=== PATIENT | female | born 1940 | race Caucasian/White ===

== ENCOUNTER 2017-02-09 09:41 | Observation (INO) | payer MEDICARE, BC ==
[~2017-02-09] VITALS: Ht 157.5 cm; Wt 55.8 kg
[~2017-02-09 09:41] MED LIST: ALENDRONATE70 MG PO; ARICEPT5 MG PO; ASPIRIN EC81 MG PO; ATENOLOL50 MG PO; CALCIUM600 M2 PO; DITROPAN PO; FOSAMAX70 MG OR; HALFPRIN81 MG OR; MULTI VIT PO; OMEGA-31000 MG PO; OMEPRAZOLE10 MG OR; PREVACID30 M1 PO; PRILOSEC20 MG PO; SIMVASTATIN40 MG PO; ZOFRAN ODT4 MG PO; ZOFRAN4 M1 OR
[2017-02-09 10:34] LABS: HEMATOCRIT 44.3 % (37.0-47.0); HEMOGLOBIN 15.3 g/dl (12.0-16.0); IMMATURE GRANULOCYTES 0.2 % (0.0-1.0); MEAN CELL VOLUME 89.3 fL CALC (80.0-100.0); MEAN CORPUSCULAR HGB 30.8 pG CALC (26.0-32.0); MEAN CORPUSCULAR HGB CONC 34.5 g/L CALC (32.0-36.0); NEUT# 3.45 thou/uL (2.00-7.15); RED BLOOD COUNT 4.96 mill/uL (4.20-5.60); RED CELL DISTRI WIDTH 11.9 % (11.5-15.5)
[2017-02-09 10:57] LABS: PROTHROMBIN TIME 10.3 SECONDS (9.0-12.5)
[2017-02-09 10:59] LABS: ALKALINE PHOSPHATASE 67 u/l (38-126); ANION GAP 16 (6-22 (CALC)); BILIRUBIN, TOTAL 0.8 mg/dL (0.0-1.4); BUN 20 mg/dL (8-23); BUN/CREATININE RATIO 23 (12-20 (CALC)); CALCIUM 10.9 mg/dL (8.4-10.2); CARBON DIOXIDE 31 mmol/l (22-30); CHLORIDE 98 mmol/l (95-108); CREATININE 0.8 mg/dL (0.5-1.0); GFR > 60 ML/MIN (>=60 (CALC)); GFR FOR AFR.AMER. > 60 ML/MIN (>=60 (CALC)); GLUCOSE 89 mg/dL (82-115); POTASSIUM 3.8 mmol/l (3.5-5.1); SGOT/AST 29 u/l (9-36); SGPT/ALT 28 u/l (11-66); SODIUM 141 mmol/l (137-146); TOTAL PROTEIN 8.1 g/dL (6.3-8.2)
[2017-02-09 11:10] LABS: MYOGLOBIN 29 ng/mL (0 - 62)
[2017-02-09 14:50] VITALS: BP 149/75
[2017-02-09 18:58] VITALS: BP 114/61
[2017-02-10] VITALS: BP 116/67
[2017-02-10 03:25] VITALS: BP 127/72
[2017-02-10 07:41] VITALS: BP 132/58
[2017-02-10 11:04] VITALS: BP 129/64
[2017-02-10] MEDS ORDERED: NAMZARIC 28-101 CAP PO (12:56)
[2017-02-10] MEDS ORDERED: ATENOLOL50 MG PO (12:58)
== END 2017-02-10 13:30 | disposition home or self-care (01) ==
LOC: ENPENDDIS → ED 09:41 → ED-I 10:41 → ED 13:42 → MS2 13:43
PROVIDERS: Emergency Medicine; ADMIT Internal Medicine; ATTEND Internal Medicine
DX: R41.82 Altered mental status, unspecified (principal); I10 Essential (primary) hypertension; R41.81 Age-related cognitive decline; K21.9 Gastro-esophageal reflux disease without esophagitis; M81.0 Age-related osteoporosis without current pathological fracture; R42 Dizziness and giddiness; R94.31 Abnormal electrocardiogram [ECG] [EKG]

== ENCOUNTER 2017-10-20 06:03 | Emergency (ER) | payer MEDICARE, BC ==
[~2017-10-20] VITALS: Ht 157.5 cm; Wt 60.0 kg
[~2017-10-20 06:03] MED LIST changes: +NAMZARIC 28-101 CAP PO
[2017-10-20 06:48] LABS: HEMATOCRIT 39.8 % (37.0-47.0); HEMOGLOBIN 13.9 g/dl (12.0-16.0); IMMATURE GRANULOCYTES 0.2 % (0.0-1.0); MEAN CELL VOLUME 88.6 fL CALC (80.0-100.0); MEAN CORPUSCULAR HGB CONC 34.9 g/L CALC (32.0-36.0); NEUT# 3.54 thou/uL (2.00-7.15); RED BLOOD COUNT 4.49 mill/uL (4.20-5.60); RED CELL DISTRI WIDTH 11.8 % (11.5-15.5)
[2017-10-20 07:03] LABS: ALBUMIN 4.7 g/dL (3.2-5.0); ALKALINE PHOSPHATASE 91 u/l (38-126); AMYLASE 71 u/l (30-110); ANION GAP 19 (6-22 (CALC)); BILIRUBIN, TOTAL 0.7 mg/dL (0.0-1.4); BUN 13 mg/dL (8-23); BUN/CREATININE RATIO 19 (12-20 (CALC)); CARBON DIOXIDE 26 mmol/l (22-30); CHLORIDE 98 mmol/l (95-108); CREATININE 0.7 mg/dL (0.5-1.0); GFR > 60 ML/MIN (>=60 (CALC)); GFR FOR AFR.AMER. > 60 ML/MIN (>=60 (CALC)); LIPASE 133 u/l (23-300); POTASSIUM 3.3 mmol/l (3.5-5.1); SGOT/AST 45 u/l (9-36); SGPT/ALT 28 u/l (11-66); SODIUM 140 mmol/l (137-146); TOTAL PROTEIN 7.2 g/dL (6.3-8.2)
[2017-10-20 07:15] LABS: MYOGLOBIN 24 ng/mL (0 - 62)
[2017-10-20] MEDS ORDERED: ZOFRAN4 MG/TAB PO (08:30)
[2017-10-20 08:39] VITALS: BP 144/61
== END 2017-10-20 08:45 | disposition home or self-care (01) ==
LOC: ED 06:03
PROVIDERS: Emergency Medicine
DX: R10.13 Epigastric pain (principal); R11.2 Nausea with vomiting, unspecified

== ENCOUNTER 2017-10-24 22:26 | Emergency (ER) | payer MEDICARE, BC ==
[~2017-10-24] VITALS: Ht 157.5 cm; Wt 52.6 kg
[~2017-10-24 22:26] MED LIST changes: +ZOFRAN4 MG/TAB PO
[2017-10-24 23:30] LABS: HEMATOCRIT 42.7 % (37.0-47.0); HEMOGLOBIN 14.7 g/dl (12.0-16.0); IMMATURE GRANULOCYTES 0.3 % (0.0-1.0); MEAN CORPUSCULAR HGB 30.6 pG CALC (26.0-32.0); MEAN CORPUSCULAR HGB CONC 34.4 g/L CALC (32.0-36.0); NEUT# 8.87 thou/uL (2.00-7.15); RED BLOOD COUNT 4.8 mill/uL (4.20-5.60); RED CELL DISTRI WIDTH 11.9 % (11.5-15.5)
[2017-10-24 23:31] LABS: URINE BLOOD DIPSTICK NEGATIVE (NEGATIVE); URINE COLOR YELLOW; URINE GLUCOSE - DIPSTICK NEGATIVE (NEGATIVE); URINE KETONE 40 mg/dL (NEGATIVE); URINE LEUK ESTERASE TRACE (NEGATIVE); URINE PH 6.5 (4.5-8.0); URINE PROTEIN - DIPSTICK 30 mg/dL (NEG-TRACE); URINE SPECIFIC GRAVITY 1.025
[2017-10-24 23:34] LABS: URINE BILIRUBIN - DIPSTICK NEGATIVE (NEGATIVE); URINE CLARITY CLEAR; URINE NITRITE - DIPSTICK POSITIVE (Negative)
[2017-10-24 23:48] LABS: ALBUMIN 4.4 g/dL (3.2-5.0); ALKALINE PHOSPHATASE 85 u/l (38-126); AMYLASE 70 u/l (30-110); ANION GAP 18 (6-22 (CALC)); BILIRUBIN, TOTAL 0.8 mg/dL (0.0-1.4); BUN 19 mg/dL (8-23); BUN/CREATININE RATIO 23 (12-20 (CALC)); CARBON DIOXIDE 26 mmol/l (22-30); CHLORIDE 100 mmol/l (95-108); CREATININE 0.8 mg/dL (0.5-1.0); GFR > 60 ML/MIN (>=60 (CALC)); GFR FOR AFR.AMER. > 60 ML/MIN (>=60 (CALC)); LIPASE 103 u/l (23-300); SGOT/AST 25 u/l (9-36); SGPT/ALT 21 u/l (11-66); SODIUM 141 mmol/l (137-146); TOTAL PROTEIN 6.8 g/dL (6.3-8.2)
[2017-10-24 23:49] LABS: URINE BACTERIA FEW hpf; URINE MUCUS MODERATE hpf (NONE-FEW); URINE RBC 0-2 RBC/hpf (0-5); URINE SQUAMOUS EPITHELIAL CELL FEW EPI/hpf (0-FEW)
[2017-10-24 23:50] LABS: URINE CALCIUM OXALATE CRYSTALS MODERATE lpf
[2017-10-25] MEDS ORDERED: ALPRAZOLAM0.25 MG PO (01:33)
[2017-10-25] MEDS ORDERED: DONEPEZIL10 MG PO (01:34)
[2017-10-25] MEDS ORDERED: BUSPIRONE HCL7.5 MG PO (01:35)
[2017-10-25 02:05] VITALS: BP 128/63
== END 2017-10-25 02:25 | disposition home or self-care (01) ==
LOC: ED 22:26
PROVIDERS: Emergency Medicine
DX: K59.00 Constipation, unspecified (principal); I10 Essential (primary) hypertension; F41.9 Anxiety disorder, unspecified; F03.90 Unspecified dementia, unspecified severity, without behavioral disturbance, psychotic disturbance, mood disturbance, and anxiety; R10.33 Periumbilical pain

== ENCOUNTER → 2018-06-24 | Outpatient (REF) | payer MEDICARE, BC ==
[~2018-06-24] MED LIST changes: +ALPRAZOLAM0.25 MG PO; +BUSPIRONE HCL7.5 MG PO; +DONEPEZIL10 MG PO
[2018-06-24 10:03] LABS: HEMATOCRIT 42.7 % (37.0-47.0); HEMOGLOBIN 14.3 g/dl (12.0-16.0); MEAN CORPUSCULAR HGB 30.5 pG CALC (26.0-32.0); MEAN CORPUSCULAR HGB CONC 33.5 g/L CALC (32.0-36.0); RED BLOOD COUNT 4.69 mill/uL (4.20-5.60)
[2018-06-24 10:06] LABS: ALBUMIN 3.9 g/dL (3.2-5.0); ALKALINE PHOSPHATASE 77 u/l (38-126); ANION GAP 12 (6-22 (CALC)); BILIRUBIN, TOTAL 0.5 mg/dL (0.0-1.4); BUN 17 mg/dL (8-23); BUN/CREATININE RATIO 20 (12-20 (CALC)); CARBON DIOXIDE 31 mmol/l (22-30); CHLORIDE 103 mmol/l (95-108); CREATININE 0.9 mg/dL (0.5-1.0); GFR > 60 ML/MIN (>=60 (CALC)); GFR FOR AFR.AMER. > 60 ML/MIN (>=60 (CALC)); SGOT/AST 20 u/l (9-36); SODIUM 142 mmol/l (137-146); TOTAL PROTEIN 6.4 g/dL (6.3-8.2)
[2018-06-24 11:04] LABS: CHOLESTEROL HDL RATIO 2.2 (<4.4 (CALC))
[2018-06-24 11:05] LABS: URINE BILIRUBIN - DIPSTICK NEGATIVE (NEGATIVE); URINE BLOOD DIPSTICK NEGATIVE (NEGATIVE); URINE CLARITY CLEAR; URINE COLOR YELLOW; URINE GLUCOSE - DIPSTICK NEGATIVE (NEGATIVE); URINE KETONE NEGATIVE (NEGATIVE); URINE LEUK ESTERASE TRACE (NEGATIVE); URINE NITRITE - DIPSTICK NEGATIVE (Negative); URINE PROTEIN - DIPSTICK NEGATIVE (NEG-TRACE); URINE SPECIFIC GRAVITY <=1.005; URINE UROBILINOGEN - DIPSTICK 0.2 E.U./dL (0.2)
[2018-06-24 11:37] LABS: TSH, 3RD GENERATION 1.38 uIU/mL (0.47 - 4.68)
== END | disposition home or self-care (01) ==
LOC: MRI 09:15
PROVIDERS: ATTEND Nurse Practitioner Adult Health
DX: S06.9X0A Unspecified intracranial injury without loss of consciousness, initial encounter (principal); W19.XXXA Unspecified fall, initial encounter; E78.5 Hyperlipidemia, unspecified; I10 Essential (primary) hypertension
CPT/HCPCS: A9579

== ENCOUNTER 2018-07-26 07:23 | Emergency (ER) | payer MEDICARE, BC ==
[~2018-07-26] VITALS: Ht 157.5 cm; Wt 50.0 kg
[2018-07-26 08:17] LABS: HEMATOCRIT 39.8 % (37.0-47.0); HEMOGLOBIN 13.4 g/dl (12.0-16.0); IMMATURE GRANULOCYTES 0.4 % (0.0-5.0); MEAN CORPUSCULAR HGB 30.3 pG CALC (26.0-32.0); MEAN CORPUSCULAR HGB CONC 33.7 g/L CALC (32.0-36.0); NEUT# 3.98 thou/uL (2.00-7.15); RED BLOOD COUNT 4.42 mill/uL (4.20-5.60); RED CELL DISTRI WIDTH 12.2 % (11.5-15.5)
[2018-07-26 08:26] LABS: ALBUMIN 3.6 g/dL (3.2-5.0); ALKALINE PHOSPHATASE 74 u/l (38-126); ANION GAP 11 (6-22 (CALC)); BILIRUBIN, TOTAL 0.7 mg/dL (0.0-1.4); BUN 18 mg/dL (8-23); BUN/CREATININE RATIO 24 (12-20 (CALC)); CARBON DIOXIDE 29 mmol/l (22-30); CHLORIDE 104 mmol/l (95-108); CREATININE 0.7 mg/dL (0.5-1.0); GFR > 60 ML/MIN (>=60 (CALC)); GFR FOR AFR.AMER. > 60 ML/MIN (>=60 (CALC)); POTASSIUM 3.7 mmol/l (3.5-5.1); SGOT/AST 23 u/l (9-36); SODIUM 141 mmol/l (137-146); TOTAL PROTEIN 6.1 g/dL (6.3-8.2)
[2018-07-26] MEDS ORDERED: ANTI-FUNGAL12 EX (09:56)
[2018-07-26] MEDS ORDERED: AMOXICILLIN875 MG PO (09:56)
[2018-07-26 11:02] VITALS: BP 110/53
== END 2018-07-26 11:02 | disposition home or self-care (01) ==
LOC: ED 07:23
PROVIDERS: Emergency Medicine
DX: L03.115 Cellulitis of right lower limb (principal); I10 Essential (primary) hypertension; F03.90 Unspecified dementia, unspecified severity, without behavioral disturbance, psychotic disturbance, mood disturbance, and anxiety; F41.9 Anxiety disorder, unspecified

== ENCOUNTER → 2018-11-13 | Outpatient (REF) | payer MEDICARE, BC ==
[~2018-11-13] MED LIST changes: +AMLODIPINE2.5 MG PO; +AMOXICILLIN875 MG PO; +ANTI-FUNGAL12 EX; +ASPIRIN 81 LOW81 MG PO; +BUSPIRONE5 MG PO; +CLONAZEPAM0.5 MG PO; +K-TAB20 MEQ PO; +LEXAPRO10 MG PO; +NAMENDA10 MG PO
[2018-11-13 09:36] LABS: IMMATURE GRANULOCYTES 0.3 % (0.0-5.0); MEAN CORPUSCULAR HGB 25.2 pG CALC (26.0-32.0); MEAN CORPUSCULAR HGB CONC 31.4 g/L CALC (32.0-36.0); NEUT# 4.97 thou/uL (2.00-7.15); RED BLOOD COUNT 5.28 mill/uL (4.20-5.60); RED CELL DISTRI WIDTH 15.8 % (11.5-15.5)
[2018-11-13 09:38] LABS: HEMATOCRIT 42.4 % (37.0-47.0); HEMOGLOBIN 13.3 g/dl (12.0-16.0); MEAN CELL VOLUME 80.3 fL CALC (80.0-100.0)
[2018-11-13 09:39] LABS: ALKALINE PHOSPHATASE 94 u/l (38-126); ANION GAP 14 (6-22 (CALC)); BILIRUBIN, TOTAL 0.6 mg/dL (0.0-1.4); BUN 18 mg/dL (8-23); BUN/CREATININE RATIO 18 (12-20 (CALC)); CALCULATED LDLCHOLESTEROL 60 mg/dL (62-129 (CALC)); CARBON DIOXIDE 33 mmol/l (22-30); CHLORIDE 98 mmol/l (95-108); CHOLESTEROL HDL RATIO 1.8 (<4.4 (CALC)); GFR 54 ML/MIN (>=60 (CALC)); GFR FOR AFR.AMER. > 60 ML/MIN (>=60 (CALC)); HDL CHOLESTEROL 94 mg/dL (>=40); SGOT/AST 26 u/l (9-36); SODIUM 142 mmol/l (137-146); TOTAL CHOLESTEROL 172 mg/dl (0-199); TOTAL TRIGLYCERIDES 91 mg/dl (30-149); VLDL CHOLESTROL 18 mg/dl (0-48 (CALC))
[2018-11-13 09:40] LABS: ALBUMIN 4.8 g/dL (3.2-5.0); TOTAL PROTEIN 7.4 g/dL (6.3-8.2)
== END | disposition home or self-care (01) ==
LOC: LAB 09:00
PROVIDERS: ATTEND Nurse Practitioner Family
DX: E78.5 Hyperlipidemia, unspecified (principal); F02.80 Dementia in other diseases classified elsewhere, unspecified severity, without behavioral disturbance, psychotic disturbance, mood disturbance, and anxiety; I10 Essential (primary) hypertension

== ENCOUNTER 2018-11-24 04:54 | Emergency (ER) | payer MEDICARE, BC ==
[~2018-11-24] VITALS: Ht 157.5 cm; Wt 49.0 kg
[~2018-11-24 04:54] MED LIST changes: -AMLODIPINE2.5 MG PO; -ASPIRIN 81 LOW81 MG PO; -BUSPIRONE5 MG PO; -CLONAZEPAM0.5 MG PO; -K-TAB20 MEQ PO; -LEXAPRO10 MG PO; -NAMENDA10 MG PO
[2018-11-24] MEDS ORDERED: ASPIRIN 81 LOW81 MG PO (06:07)
[2018-11-24] MEDS ORDERED: BUSPIRONE5 MG PO (06:08)
[2018-11-24] MEDS ORDERED: CLONAZEPAM0.5 MG PO (06:09)
[2018-11-24] MEDS ORDERED: NAMENDA10 MG PO (06:10)
[2018-11-24] MEDS ORDERED: LEXAPRO10 MG PO (06:10)
[2018-11-24] MEDS ORDERED: SIMVASTATIN40 MG PO (06:11)
[2018-11-24 08:10] LABS: HEMATOCRIT 37.5 % (37.0-47.0); MEAN CELL VOLUME 78.6 fL CALC (80.0-100.0); MEAN CORPUSCULAR HGB 25.2 pG CALC (26.0-32.0); NEUT# 1.61 thou/uL (2.00-7.15); RED BLOOD COUNT 4.77 mill/uL (4.20-5.60); RED CELL DISTRI WIDTH 16.9 % (11.5-15.5)
[2018-11-24 08:16] LABS: ANION GAP 14 (6-22 (CALC)); BUN 21 mg/dL (8-23); BUN/CREATININE RATIO 25 (12-20 (CALC)); CARBON DIOXIDE 30 mmol/l (22-30); CHLORIDE 99 mmol/l (95-108); CREATININE 0.8 mg/dL (0.5-1.0); GFR > 60 ML/MIN (>=60 (CALC)); GFR FOR AFR.AMER. > 60 ML/MIN (>=60 (CALC)); SODIUM 139 mmol/l (137-146)
[2018-11-24] MEDS ORDERED: AMLODIPINE2.5 MG PO (08:24)
[2018-11-24] MEDS ORDERED: K-TAB20 MEQ PO (08:24)
[2018-11-24 08:36] VITALS: BP 123/68
== END 2018-11-24 09:22 | disposition home or self-care (01) ==
LOC: ED 04:54
PROVIDERS: Family Medicine
DX: M54.42 Lumbago with sciatica, left side (principal); M54.41 Lumbago with sciatica, right side; I10 Essential (primary) hypertension

== ENCOUNTER 2019-06-06 16:11 | Emergency (ER) | payer MEDICARE, BC ==
[~2019-06-06] VITALS: Ht 157.5 cm; Wt 47.0 kg
[~2019-06-06 16:11] MED LIST changes: +AMLODIPINE2.5 MG PO; +ASPIRIN 81 LOW81 MG PO; +BUSPIRONE5 MG PO; +CLONAZEPAM0.5 MG PO; +K-TAB20 MEQ PO; +LEXAPRO10 MG PO; +NAMENDA10 MG PO
[2019-06-06 16:42] LABS: HEMOGLOBIN 12.5 g/dl (12.0-16.0); IMMATURE GRANULOCYTES 0.2 % (0.0-5.0); MEAN CELL VOLUME 84.8 fL CALC (80.0-100.0); MEAN CORPUSCULAR HGB 27.2 pG CALC (26.0-32.0); MEAN CORPUSCULAR HGB CONC 32.1 g/L CALC (32.0-36.0); NEUT# 2.58 thou/uL (2.00-7.15); RED BLOOD COUNT 4.6 mill/uL (4.20-5.60); RED CELL DISTRI WIDTH 14.4 % (11.5-15.5)
[2019-06-06 17:05] VITALS: BP 188/88
[2019-06-06 17:08] LABS: BUN 19 mg/dL (8-23); BUN/CREATININE RATIO 27 (12-20 (CALC)); CARBON DIOXIDE 30 mmol/l (22-30); CHLORIDE 101 mmol/l (95-108); CREATININE 0.7 mg/dL (0.5-1.0); GFR > 60 ML/MIN (>=60 (CALC)); GFR FOR AFR.AMER. > 60 ML/MIN (>=60 (CALC)); SODIUM 141 mmol/l (137-146)
[2019-06-06 17:09] LABS: ANION GAP 14 (6-22 (CALC)); POTASSIUM 3.7 mmol/l (3.5-5.1)
== END 2019-06-06 17:05 | disposition short-term general hospital (02) ==
LOC: ED 16:11
PROVIDERS: Family Medicine
DX: I21.3 ST elevation (STEMI) myocardial infarction of unspecified site (principal); I10 Essential (primary) hypertension; F03.90 Unspecified dementia, unspecified severity, without behavioral disturbance, psychotic disturbance, mood disturbance, and anxiety

== ENCOUNTER 2019-07-12 17:03 | Emergency (ER) | payer MEDICARE, BC ==
[~2019-07-12] VITALS: Ht 157.5 cm; Wt 68.0 kg
[2019-07-12 17:23] LABS: HEMATOCRIT 33.1 % (37.0-47.0); HEMOGLOBIN 10.7 g/dl (12.0-16.0); IMMATURE GRANULOCYTES 0.2 % (0.0-5.0); MEAN CELL VOLUME 84.9 fL CALC (80.0-100.0); MEAN CORPUSCULAR HGB 27.4 pG CALC (26.0-32.0); MEAN CORPUSCULAR HGB CONC 32.3 g/L CALC (32.0-36.0); NEUT# 2.95 thou/uL (2.00-7.15); RED BLOOD COUNT 3.9 mill/uL (4.20-5.60); RED CELL DISTRI WIDTH 14.1 % (11.5-15.5)
[2019-07-12] MEDS ORDERED: NORVASC5 M1 PO (17:24)
[2019-07-12] MEDS ORDERED: CALCIUM600 M1 PO (17:25)
[2019-07-12] MEDS ORDERED: COREG12.5 MG PO (17:26)
[2019-07-12] MEDS ORDERED: DONEPEZIL HCL10 M1 PO (17:27)
[2019-07-12] MEDS ORDERED: D3400 UNIT PO (17:27)
[2019-07-12] MEDS ORDERED: PRESERVISION PO (17:30)
[2019-07-12] MEDS ORDERED: TRAZODONE50 MG PO (17:31)
[2019-07-12 17:38] LABS: ACT PARTIAL THROMBO TIME 26.9 SECONDS (20.0-32.5); PROTHROMBIN TIME 13.3 SECONDS (9.0-12.5)
[2019-07-12 17:40] LABS: INTERNATIONAL NORMALIZED RATIO 1.3 RATIO (0.7-1.3)
[2019-07-12 17:50] LABS: ALBUMIN 3.8 g/dL (3.2-5.0); ALKALINE PHOSPHATASE 78 u/l (38-126); ANION GAP 12 (6-22 (CALC)); BILIRUBIN, TOTAL 0.4 mg/dL (0.0-1.4); BUN 25 mg/dL (8-23); BUN/CREATININE RATIO 33 (12-20 (CALC)); CARBON DIOXIDE 26 mmol/l (22-30); CHLORIDE 103 mmol/l (95-108); CREATININE 0.8 mg/dL (0.5-1.0); GFR > 60 ML/MIN (>=60 (CALC)); GFR FOR AFR.AMER. > 60 ML/MIN (>=60 (CALC)); LIPASE 239 u/l (23-300); SGOT/AST 27 u/l (9-36); SODIUM 137 mmol/l (137-146); TOTAL PROTEIN 6.6 g/dL (6.3-8.2)
[2019-07-12 20:18] VITALS: BP 165/77
== END 2019-07-12 20:18 | disposition home or self-care (01) ==
LOC: ED 17:03
DX: R07.89 Other chest pain (principal); I10 Essential (primary) hypertension; F03.90 Unspecified dementia, unspecified severity, without behavioral disturbance, psychotic disturbance, mood disturbance, and anxiety; R06.02 Shortness of breath
CPT/HCPCS: Q9967

== ENCOUNTER 2019-09-01 12:03 | Emergency (ER) | payer MEDICARE, BC ==
[~2019-09-01] VITALS: Ht 157.5 cm; Wt 52.3 kg
[~2019-09-01 12:03] MED LIST changes: +CALCIUM600 M1 PO; +COREG12.5 MG PO; +D3400 UNIT PO; +DONEPEZIL HCL10 M1 PO; +NORVASC5 M1 PO; +PRESERVISION PO; +TRAZODONE50 MG PO
[2019-09-01 14:01] LABS: IMMATURE GRANULOCYTES 0.7 % (0.0-5.0); MEAN CORPUSCULAR HGB 21.6 pG CALC (26.0-32.0); MEAN CORPUSCULAR HGB CONC 28.6 g/L CALC (32.0-36.0); NEUT# 2.48 thou/uL (2.00-7.15); RED BLOOD COUNT 3.33 mill/uL (4.20-5.60); RED CELL DISTRI WIDTH 19.1 % (11.5-15.5)
[2019-09-01 14:02] LABS: HEMATOCRIT 25.2 % (37.0-47.0); HEMOGLOBIN 7.2 g/dl (12.0-16.0); MEAN CELL VOLUME 75.7 fL CALC (80.0-100.0)
[2019-09-01 14:11] LABS: ANION GAP 12 (6-22 (CALC)); BUN 11 mg/dL (8-23); BUN/CREATININE RATIO 18 (12-20 (CALC)); CARBON DIOXIDE 26 mmol/l (22-30); CHLORIDE 105 mmol/l (95-108); CREATININE 0.6 mg/dL (0.5-1.0); GFR > 60 ML/MIN (>=60 (CALC)); GFR FOR AFR.AMER. > 60 ML/MIN (>=60 (CALC)); POTASSIUM 3.5 mmol/l (3.5-5.1); SODIUM 139 mmol/l (137-146)
[2019-09-01 15:31] VITALS: BP 155/70
[2019-10-10] MEDS ORDERED: LEXAPRO5 MG PO (13:39)
== END 2019-09-01 15:40 | disposition home or self-care (01) ==
LOC: ED 12:03
PROVIDERS: Family Medicine
DX: F41.9 Anxiety disorder, unspecified (principal); I10 Essential (primary) hypertension; F03.90 Unspecified dementia, unspecified severity, without behavioral disturbance, psychotic disturbance, mood disturbance, and anxiety

== ENCOUNTER 2019-10-09 19:06 | Observation (INO) | payer MEDICARE, BC ==
[~2019-10-09] VITALS: Ht 157.5 cm; Wt 50.6 kg
--- NOTE | 2019-10-09 19:35 | NUR ---
PT ARRIVED TO THE MED SURG FLOOR ACCOMPANIED BY TWO FAMILY MEMBERS. PT LOC TO SELF, LOCATION, NOT TO CIRCUMSTANCE. UNABLE TO EXPLAIN WHY SHE IS HERE AND WHAT HER LATEST SYMPTOMS HAVE BEEN. DAUGHTER IN LAW ANSWERING MEDICAL HISTORY QUESTIONS FOR PT. WHEN PT WAS ASKED WHY SHE WAS HERE SHE TURNED TO DIL AND ASKED HER "WHY AM I HERE?" PT IS STEADY ON FEET, AMBULATED TO STANDING SCALE AND TO THE BED. NO DISTRESS NOTED.
[2019-10-09 19:50] VITALS: BP 116/61
--- NOTE | 2019-10-09 20:12 | NUR ---
ASSESSMENT AND ADMISSION COMPLETED AT THIS TIME. DAUGHTER IN LAW STILL AT BEDSUDE AND ANSWERING QUESTIONS FOR PT. PT APPEARS CALM, NOT IN DISTRESS, DENIES PAIN/N/V OR ANY DIAHRREA. REPORTS NORMAL STOOL THIS AM LIGHT BROWN REPORTEDLY BY PT. PT DENIES ANY DIZZINESS OR FALLS. PT DOES APPEAR CONFUSED TO CIRCUMSTANCES AND REASON FOR VISIT, WILL PLACE PT ON BED ALARM FOR SAFETY REASONS.
[2019-10-09 20:25] LABS: HEMATOCRIT 34.5 % (37.0-47.0); HEMOGLOBIN 10.3 g/dl (12.0-16.0); IMMATURE GRANULOCYTES 0.2 % (0.0-5.0); MEAN CORPUSCULAR HGB 25.7 pG CALC (26.0-32.0); MEAN CORPUSCULAR HGB CONC 29.9 g/L CALC (32.0-36.0); NEUT# 2.79 thou/uL (2.00-7.15); RED BLOOD COUNT 4.01 mill/uL (4.20-5.60); RED CELL DISTRI WIDTH 22.5 % (11.5-15.5)
[2019-10-09 20:56] LABS: ALBUMIN 3.5 g/dL (3.2-5.0); ALKALINE PHOSPHATASE 74 u/l (38-126); ANION GAP 11 (6-22 (CALC)); BUN 25 mg/dL (8-23); BUN/CREATININE RATIO 39 (12-20 (CALC)); CARBON DIOXIDE 27 mmol/l (22-30); CHLORIDE 105 mmol/l (95-108); CREATININE 0.6 mg/dL (0.5-1.0); GFR > 60 ML/MIN (>=60 (CALC)); GFR FOR AFR.AMER. > 60 ML/MIN (>=60 (CALC)); POTASSIUM 3.4 mmol/l (3.5-5.1); SGOT/AST 22 u/l (9-36); SODIUM 139 mmol/l (137-146); TOTAL PROTEIN 6.1 g/dL (6.3-8.2)
[2019-10-09 20:57] LABS: BILIRUBIN, TOTAL 0.2 mg/dL (0.0-1.4)
--- NOTE | 2019-10-09 22:12 | NUR ---
PHARMACY JUST PROFILED PTS MEDICATIONS AND NULYTELY STARTED AT THIS TIME.
[2019-10-10] VITALS (10 sets, daily range): BP systolic 103–158; BP diastolic 53–80
--- NOTE | 2019-10-10 00:05 | NUR ---
ASSISTED PT TO RESTROOM AND BACK TO BED. PT ATTEMPTING TO DRINK MUCH THE NELYTELY POSSIBLE. I KEEP HAVING TO REMIND PT TO DRINK SHE IS FORGETFUL TO SHORT TERM NEEDS. PT APPEARS STEADY ON FEET WHEN AMBULATING, BUT APPEARS PLEASANTLY FORGETFUL.
--- NOTE | 2019-10-10 01:50 | NUR ---
PT ASSISTED UP TO BSC AND BACK TO BED. LARGE AMOUNT OF LOOSE RUNNY LIGHT BROWN STOOL OUTPUT.
--- NOTE | 2019-10-10 06:34 | NUR ---
PT AWOKE TO MY ENTERING ROOM, STOOD UP IMMEDIATELY AND TALKED ABOUT GETTING HER CLOTHES. PT REORIENTED EASILY TO CIRCUMSTANCE AND LCOATION, BUT INITIALLY APPEARED CONFUSED.
--- NOTE | 2019-10-10 07:20 | NUR ---
REPORT RECEIVED FROM JACI GRUBER;PT CURRENTLY BEING TAKEN DOWN TO OR FOR A COLONOSCOPY & ENDOSCOPY.
--- NOTE | 2019-10-10 09:25 | NUR ---
PT ARRIVED BACK TO MED/SURG ROOM 268 IN STABLE CONDITION VIA STRETCHER ACCOMPANIED BY JALENRN;PT TRANSFERRED TO HOSPITAL BED WITH 2 PERSON ASSIST;BEDSIDE REPORT RECEIVED AT THIS TIME;VS OBTAINED BY ISMAEL DICKINSON;PT A&O X2, ORIENTED TO ROOM AND CALL LIGHT SYSTEM;PT DENIES ANY CURRENT PAIN OR DISCOMFORTS,PAIN SCALE AND REPORTING EDUCATED;ASSESSMENT COMPLETED;RESPIRATIONS EVEN AND UNLABORED ON RA,CLEAR LUNG SOUNDS;ABDOMEN SOFT ON PALPATION AND ACTIVE IN ALL 4 QUADRANTS;WEAK PEDAL PULSES;SKIN INTACT;#20G TO LEFT WRIST INFUSING LR @ 100ML/HR;PT DENIES ANY ADDITIONAL NEEDS AT THIS TIME;ENCOURAGED TO CALL FOR ASSISTANCE IF NEEDED;FALL PRECAUTIONS IN PLACE WITH BED IN THE LOWEST POSITION AND BED ALARM ON FOR SAFETY;CALL LIGHT IN REACH;WILL CONTINUE TO MONITOR
--- NOTE | 2019-10-10 10:21 | NUR ---
AT BEDSIDE DISCUSSING POC.
--- NOTE | 2019-10-10 11:40 | NUR ---
PT RESTING IN SEMI FOWLERS POSITION;RESPIRATIONS EVEN AND UNLABORED ON RA;PT DENIES ANY CURRENT PAIN OR NEEDS;IV SITE DRESSING CHANGED AND PROTONIX DRIP INITATED @ 10ML/HR;PT TOLERATED DIET WELL;PT DENIES ANY ADDITIONAL NEEDS AT THIS TIME AND IS ENCOURAGED TO CALL FOR ASSISTANCE IF NEEDED;FALL PRECAUTIONS IN PLACE WITH CALL LIGHT IN REACH;WILL CONTINUE TO MONITOR
--- NOTE | 2019-10-10 13:01 | NUR ---
AT BEDSIDE DISCUSSING POC.
[2019-10-10] MEDS ORDERED: KLONOPIN0.5 MG PO (13:35)
[2019-10-10] MEDS ORDERED: LEXAPRO10 MG PO (13:39)
[2019-10-10] MEDS ORDERED: DONEPEZIL HCL10 M1 PO (13:54)
[2019-10-10] MEDS ORDERED: FERRETTS325 MG PO (13:57)
[2019-10-10] MEDS ORDERED: NAMENDA10 MG PO (13:59)
--- NOTE | 2019-10-10 14:50 | NUR ---
PT FOUND AMBULATING THE HALLWAY WITH A STEADY GAIT, PT REPORTS SHE WAS "LOOKING FOR MY MOM";ASSISTED PT BACK TO ROOM AND ATTEMPTED TO RE-ORIENT BUT UNSUCCESSFUL;IV SITE WAS DISLOGED WITH CATHETER INTACT.NEW #22G STARTED TO LEFT HAND ON 1 ST ATTEMPT BY THIS WRITTER;PT ANXIOUS, SHAKING STATES "ITS MY NERVOUS";MARIPOSA BERGRP NOTIFIED AND NEW ORDER RECEIVED FOR XANAX;ALL SAFETY PRECAUTIONS IN PLACE WITH BED IN THE LOWEST POSITION AND BED ALARM ON FOR SAFETY;CALL LIGHT IN REACH;WILL CONTINUE TO MONITOR
--- NOTE | 2019-10-10 15:15 | NUR ---
PT RESTING IN SEMI FOWLERS POSITION;RESPIRATIONS EVEN AND UNLABORED ON RA;PT DENIES ANY CURRENT PAIN AND WAS RECENTLY MEDICATED WITH XANAX FOR ANXIETY PER ORDER;IV PROTONIX INFUSING TO LEFT HAND WITH EASE;PT CURRENT TEMP 103.1, PT MEDICATED WITH PRN TYLENOL 650MG PO.BLANKETS REMOVED AND AC LOWERED;PT DENIES ANY ADDITIONAL NEEDS AT THIS TIME;ENCOURAGED TO CALL FOR ASSISTANCE IF NEEDED;FALL PRECAUTIONS IN PLACE WITH BED ALARM ON FOR SAFETY;CALL LIGHT IN REACH;WILL CONTINUE TO MONITOR
--- NOTE | 2019-10-10 20:10 | NUR ---
ASSESSMENT COMPLETED. BED ALARM ON FOR SAFETY PRECAUTIONS. PT. IS A/A/O AT THIS TIME. UPDATE ON POC. IV SITE PATENT WITH ORDERED PROTONIX GTT INFUSING WELL. ENCOURAGED TO CALL FOR ANY NEEDS. CALL LIGHT IS IN REACH.
[2019-10-10 21:13] LABS: URINE BILIRUBIN - DIPSTICK NEGATIVE (NEGATIVE); URINE BLOOD DIPSTICK NEGATIVE (NEGATIVE); URINE CLARITY CLEAR; URINE COLOR YELLOW; URINE GLUCOSE - DIPSTICK NEGATIVE (NEGATIVE); URINE KETONE 15 mg/dL (NEGATIVE); URINE LEUK ESTERASE NEGATIVE (Negative); URINE NITRITE - DIPSTICK NEGATIVE (Negative); URINE PH 5.5 (4.5-8.0); URINE PROTEIN - DIPSTICK NEGATIVE (NEG-TRACE); URINE SPECIFIC GRAVITY <=1.005; URINE UROBILINOGEN - DIPSTICK 0.2 E.U./dL (0.2)
--- NOTE | 2019-10-11 00:20 | NUR ---
RESTING IN BED WITH EYES CLOSED; RESP. EVEN AND UNLABORED. CALL LIGHT IS IN REACH.
[2019-10-11 04:00] VITALS: BP 110/71
--- NOTE | 2019-10-11 04:25 | NUR ---
RESTING IN BED WITH EYES CLOSED; RESP. EVEN AND UNLABORED. CALL LIGHT IS IN REACH. BED ALARM ON.
--- NOTE | 2019-10-11 06:05 | NUR ---
PT. FOUND WITH IV SITE ON BEDSIDE TABLE. PT. IS FORGETFUL OF WHERE SHE IS AND IS REORIENTED. ASSISTED TO AND FROM BSC. NEW IV STARTED TO LFA X1 ATTEMPT; PT. TOLERATED WELL. BED ALARM RESET. CALL LIGHT IS IN REACH.
[2019-10-11 07:37] VITALS: BP 124/69
--- NOTE | 2019-10-11 07:37 | NUR ---
PT RESTING IN BED, NO SIGNS OF DISTRESS NOTED, RESP EVEN AND UNLABORED. PT ALERT AND ORIENTED X3, PER REPORT PT HAS BOUTS OF CONFUSION, BED ALARM IN PLACE FOR SAFETY. DISCUSSED POC, NEW BAG OF PROTONIX GTT PLACED. VSS, ASSESSMENT COMPLETED, CALL LIGHT IN REACH,CONTINUE TO MONITOR.
[2019-10-11 09:28] VITALS: BP 124/69
--- NOTE | 2019-10-11 12:00 | NUR ---
PT RESTING IN BED, NO SIGNS OF DISTRESS NOTED, RESP EVEN AND UNLABORED. DISCUSSED JAIRON, PT AGREES, AWAITING PHARMACY TO BRING. CALL LIGHT IN REACH,CONTINUE TO MONITOR.
[2019-10-11 12:42] LABS: HEMATOCRIT 36.5 % (37.0-47.0); MEAN CELL VOLUME 85.1 fL CALC (80.0-100.0); MEAN CORPUSCULAR HGB 25.6 pG CALC (26.0-32.0); MEAN CORPUSCULAR HGB CONC 30.1 g/L CALC (32.0-36.0); RED BLOOD COUNT 4.29 mill/uL (4.20-5.60); RED CELL DISTRI WIDTH 22.8 % (11.5-15.5)
[2019-10-11 13:04] LABS: ANION GAP 10 (6-22 (CALC)); BUN 21 mg/dL (8-23); BUN/CREATININE RATIO 32 (12-20 (CALC)); CARBON DIOXIDE 30 mmol/l (22-30); CHLORIDE 99 mmol/l (95-108); CREATININE 0.6 mg/dL (0.5-1.0); GFR > 60 ML/MIN (>=60 (CALC)); GFR FOR AFR.AMER. > 60 ML/MIN (>=60 (CALC)); POTASSIUM 3.5 mmol/l (3.5-5.1); SODIUM 136 mmol/l (137-146)
--- NOTE | 2019-10-11 14:40 | NUR ---
PT AT NURSING STATION DRESSED STATES SHE IS READY TO BE DISCHARGED. STEP DAUGHTER AT BEDSIDE, RETURNED TO ROOM WITH PT, NOTED IV WAS REMOVED BY PT, CATHETER INTACT. PT SITTING ON COUCH WITH STEP DAUGHTER AWAITING DISCHARGE.
[2019-10-11] MEDS ORDERED: PROTONIX20 MG PO (16:25)
--- NOTE | 2019-10-11 16:40 | NUR ---
Discharge instructions given. Patient verbalizes understanding of same. Discharged in stable condition via Ambulatory to Home with family. All belongings sent with pt.
[2020-09-04] MEDS ORDERED: BUSPIRONE15 MG PO (19:33)
== END 2019-10-11 16:40 | disposition home or self-care (01) ==
LOC: MS2 19:06
PROVIDERS: Nurse Practitioner Family; ADMIT Internal Medicine; ATTEND Internal Medicine
PROC: 0DB78ZX Excision of Stomach, Pylorus, Via Natural or Artificial Opening Endoscopic, Diagnostic (ICD-10-PCS; principal; 2019-10-10)
PROC: 0DJD8ZZ Inspection of Lower Intestinal Tract, Via Natural or Artificial Opening Endoscopic (ICD-10-PCS; 2019-10-10)
DX: K25.4 Chronic or unspecified gastric ulcer with hemorrhage (principal); D62 Acute posthemorrhagic anemia; K44.9 Diaphragmatic hernia without obstruction or gangrene; K57.30 Diverticulosis of large intestine without perforation or abscess without bleeding; K64.8 Other hemorrhoids; F03.90 Unspecified dementia, unspecified severity, without behavioral disturbance, psychotic disturbance, mood disturbance, and anxiety; K74.60 Unspecified cirrhosis of liver; I10 Essential (primary) hypertension; D50.0 Iron deficiency anemia secondary to blood loss (chronic)
CPT/HCPCS: G0378; G0379; S0164

== ENCOUNTER 2020-09-04 18:12 | Observation (INO) | payer MEDICARE, BC ==
[~2020-09-04] VITALS: Ht 157.5 cm; Wt 51.9 kg
[~2020-09-04 18:12] MED LIST changes: +FERRETTS325 MG PO; +KLONOPIN0.5 MG PO; +LEXAPRO5 MG PO; +PROTONIX20 MG PO
--- NOTE | 2020-09-04 18:17 | NUR ---
PATIENT TO ROOM VIA EMS AND PHYSICIAN NOTIFIED OF PATIENT STATUS
--- NOTE | 2020-09-04 18:55 | NUR ---
GAVE REPORT TO CRIS AND SHE IS AWARE OF INCOMPLETE MED REC
[2020-09-04 19:02] LABS: HEMATOCRIT 42.8 % (37.0-47.0); HEMOGLOBIN 14.2 g/dl (12.0-16.0); IMMATURE GRANULOCYTES 0.3 % (0.0-5.0); MEAN CELL VOLUME 91.5 fL CALC (80.0-100.0); MEAN CORPUSCULAR HGB 30.3 pG CALC (26.0-32.0); MEAN CORPUSCULAR HGB CONC 33.2 g/dL CAL (32.0-36.0); NEUT# 3.89 thou/uL (2.00-7.15); RED BLOOD COUNT 4.68 mill/uL (4.20-5.60); RED CELL DISTRI WIDTH 12.1 % (11.5-15.5)
[2020-09-04 19:23] LABS: ALBUMIN 4.1 g/dL (3.2-5.0); ALKALINE PHOSPHATASE 71 u/l (38-126); AMYLASE 71 u/l (30-110); ANION GAP 10 (6-22 (CALC)); BILIRUBIN, TOTAL 0.9 mg/dL (0.0-1.4); BUN 25 mg/dL (8-23); BUN/CREATININE RATIO 31 (12-20 (CALC)); CARBON DIOXIDE 30 mmol/l (22-30); CHLORIDE 101 mmol/l (95-108); CREATININE 0.8 mg/dL (0.5-1.0); GFR > 60 ML/MIN (>=60 (CALC)); GFR FOR AFR.AMER. > 60 ML/MIN (>=60 (CALC)); LIPASE 106 u/l (23-300); POTASSIUM 3.7 mmol/l (3.5-5.1); SGOT/AST 24 u/l (9-36); SODIUM 137 mmol/l (137-146); TOTAL PROTEIN 6.9 g/dL (6.3-8.2)
--- NOTE | 2020-09-04 19:27 | NUR ---
IF DISCHARGED CALL [facility] AT [phone] FOR TRANSPORTATION.
[2020-09-04] MEDS ORDERED: BUSPIRONE5 MG PO (19:33)
[2020-09-04] MEDS ORDERED: TIZANIDINE2 MG PO (19:34)
[2020-09-04 19:35] LABS: MYOGLOBIN 37 ng/mL (0 - 62)
[2020-09-04] MEDS ORDERED: VITAMIN D31000 UNI1 PO (19:35)
--- NOTE | 2020-09-04 21:05 | NUR ---
ATTEMPTED TO GIVE REPORT FOR INPATIENT TREATMENT NURSE UNAVAILABLE.
--- NOTE | 2020-09-04 22:15 | NUR ---
SPOKE WITH DR FALCON, PATIENT CHANGED FROM MS DESIGNATION TO ICU FOR HEMATEMISIS.
--- NOTE | 2020-09-04 22:28 | NUR ---
HAND OFF REPORT GIVEN TO VASYL
--- NOTE | 2020-09-04 22:36 | NUR ---
80 yr old white female admitted to icu8 per stretcher from er. assisted to bed x1 assist. bed weight obtained. pt is confused & unable to obtain history. nuclear monitoring technician shows sinus rhythm hr 91. #20 lac & #22 rac saline locks. history obtained per er sheet & old record. fall & air/contact precautions, bed alarm initiated.
[2020-09-04 22:45] VITALS: BP 139/69
[2020-09-04 23:00] VITALS: BP 165/73
[2020-09-04 23:15] VITALS: BP 155/76
[2020-09-04 23:30] VITALS: BP 157/75
--- NOTE | 2020-09-04 23:30 | NUR ---
lab here. blood drawn.
[2020-09-04 23:50] VITALS: BP 152/71
[2020-09-05] VITALS (9 sets, daily range): BP systolic 139–176; BP diastolic 62–76
[2020-09-05 00:10] LABS: HEMATOCRIT 46.1 % (37.0-47.0); HEMOGLOBIN 15.1 g/dl (12.0-16.0)
--- NOTE | 2020-09-05 02:00 | NUR ---
resting quietly. resps even & unlabored. nad. no emesis.
--- NOTE | 2020-09-05 04:00 | NUR ---
eyes closed. no distress. campus monitor shows sinus rhythm hr 70. no emesis.
--- NOTE | 2020-09-05 05:30 | NUR ---
lab here. blood drawn. up to bsc. voided well then returned to bed.
[2020-09-05 06:15] LABS: HEMATOCRIT 45.4 % (37.0-47.0); HEMOGLOBIN 14.7 g/dl (12.0-16.0); IMMATURE GRANULOCYTES 0.3 % (0.0-5.0); MEAN CELL VOLUME 92.5 fL CALC (80.0-100.0); MEAN CORPUSCULAR HGB 29.9 pG CALC (26.0-32.0); MEAN CORPUSCULAR HGB CONC 32.4 g/dL CAL (32.0-36.0); NEUT# 9.3 thou/uL (2.00-7.15); RED BLOOD COUNT 4.91 mill/uL (4.20-5.60); RED CELL DISTRI WIDTH 12.5 % (11.5-15.5)
[2020-09-05 06:21] LABS: ANION GAP 12 (6-22 (CALC)); BUN 22 mg/dL (8-23); BUN/CREATININE RATIO 33 (12-20 (CALC)); CARBON DIOXIDE 27 mmol/l (22-30); CHLORIDE 103 mmol/l (95-108); CREATININE 0.7 mg/dL (0.5-1.0); GFR > 60 ML/MIN (>=60 (CALC)); GFR FOR AFR.AMER. > 60 ML/MIN (>=60 (CALC)); POTASSIUM 3.8 mmol/l (3.5-5.1); SODIUM 138 mmol/l (137-146)
--- NOTE | 2020-09-05 08:26 | NUR ---
PT RESTING IN BED, ALERT AND ORIENTED TO SELF, DISCUSSED POC, PT VOICES NO NEEDS OR COMPLAINTS AT THIS TIME, NO C/O CP NO EMESIS. SKIN INTACT, NO EDEMA. ASSESSMENT COMPLETED, CALL LIGHT IN REACH,CONTINUE TO MONITOR.
--- NOTE | 2020-09-05 11:42 | NUR ---
LUNCH TRAY BROUGHT INTO PT, DISCUSSED DISCHARGE INFORMATION, CALL MADE TO TO DISCUSS DISCHARGE INSTRUCTIONS WELL. CALL LIGHT IN REACH,CONTINUE TO MONITOR.
[2020-09-05 12:06] LABS: HEMATOCRIT 44.4 % (37.0-47.0); HEMOGLOBIN 14.5 g/dl (12.0-16.0)
--- NOTE | 2020-09-05 12:29 | NUR ---
Discharge instructions given. Patient verbalizes understanding of same. Discharged in stable condition via Wheelchair to Home with friend. All belongings sent with pt.
== END 2020-09-05 12:29 | disposition home or self-care (01) ==
LOC: ED 18:12 → ED-I 19:37 → ED 19:49 → MS2 19:50 → ICU 22:09
PROVIDERS: Emergency Medicine; ADMIT Internal Medicine; ATTEND Internal Medicine
DX: R07.89 Other chest pain (principal); K25.4 Chronic or unspecified gastric ulcer with hemorrhage; I10 Essential (primary) hypertension; F03.90 Unspecified dementia, unspecified severity, without behavioral disturbance, psychotic disturbance, mood disturbance, and anxiety; K74.60 Unspecified cirrhosis of liver; F41.9 Anxiety disorder, unspecified; Z20.828 Contact with and (suspected) exposure to other viral communicable diseases
CPT/HCPCS: S0164

== ENCOUNTER 2021-02-14 04:33 | Observation (INO) | payer MEDICARE, BC ==
[~2021-02-14] VITALS: Ht 157.5 cm; Wt 51.0 kg
[~2021-02-14 04:33] MED LIST changes: +BUSPIRONE15 MG PO; -LEXAPRO5 MG PO; +TIZANIDINE2 MG PO; +VITAMIN D31000 UNI1 PO
--- NOTE | 2021-02-14 04:33 | NUR ---
PT ARRIVED TO ROOM VIA EMS STRETCHER FOR BEDSIDE TRIAGE, PT ALERT TO NAME AND KNOWS SHE IS IN A HOSPITAL BUT NOT WHICH ONE, ALSO DENIES CHEST PAIN WHEN ASKED WHY SHE IS HERE SHE STATES "I THINK I WAS DIZZY AT HOME" HISTORY OBTAINED FROM PREVIOUS MEDICAL RECORDS PT HAS HISTORY OF DEMENTIA AND IS VERY POOR HISTORIAN.
--- NOTE | 2021-02-14 05:16 | NUR ---
PATIENT DENIES CHEST PAIN AT THIS TIME. PATIENT TOLERATES ASPIRIN AND XANAX PROVIDED WITH ICED WATER. NITRO PASTE PLACED ON LEFT SIDE CHEST. LAYS IN CORRIGAN'S POSITION, CALL LIGHT WITHIN REACH.
[2021-02-14 05:37] LABS: HEMATOCRIT 47.5 % (37.0-47.0); HEMOGLOBIN 15.8 g/dl (12.0-16.0); IMMATURE GRANULOCYTES 0.3 % (0.0-5.0); MEAN CELL VOLUME 91.9 fL CALC (80.0-100.0); MEAN CORPUSCULAR HGB 30.6 pG CALC (26.0-32.0); MEAN CORPUSCULAR HGB CONC 33.3 g/dL CAL (32.0-36.0); NEUT# 2.2 thou/uL (2.00-7.15); RED BLOOD COUNT 5.17 mill/uL (4.20-5.60); RED CELL DISTRI WIDTH 12.4 % (11.5-15.5)
[2021-02-14] MEDS ORDERED: PROTONIX40 M2 PO (05:42)
[2021-02-14 05:51] LABS: ALBUMIN 4.5 g/dL (3.2-5.0); ALKALINE PHOSPHATASE 65 u/l (38-126); ANION GAP 12 (6-22 (CALC)); BILIRUBIN, TOTAL 0.8 mg/dL (0.0-1.4); BUN 18 mg/dL (8-23); BUN/CREATININE RATIO 21 (12-20 (CALC)); CARBON DIOXIDE 31 mmol/l (22-30); CHLORIDE 101 mmol/l (95-108); CREATININE 0.9 mg/dL (0.5-1.0); GFR > 60 ML/MIN (>=60 (CALC)); GFR FOR AFR.AMER. > 60 ML/MIN (>=60 (CALC)); LIPASE 177 u/l (23-300); POTASSIUM 3.7 mmol/l (3.5-5.1); SGOT/AST 25 u/l (9-36); SODIUM 140 mmol/l (137-146); TOTAL PROTEIN 7.6 g/dL (6.3-8.2)
--- NOTE | 2021-02-14 07:00 | NUR ---
RECEIVED REPORT FROM MICHAEL BEATTY.
--- NOTE | 2021-02-14 07:57 | NUR ---
REPORT CALLED TO JACQUI BEATTY.
--- NOTE | 2021-02-14 08:20 | NUR ---
TO MED SURG VIA WHEELCHAIR, TELE MONITOR IN PLACE.
[2021-02-14 08:37] VITALS: BP 180/76
--- NOTE | 2021-02-14 08:45 | NUR ---
REPORT RECEIVED FROM VIRAL IN ED, PT ARRIVED ON UNIT @ 0874 TRANSPORTED VIA W/C BY ED STAFF, AMBULATED TO BED AND SETTLED. ALERT AND ORIENTED X 2, ORIENTED TO ROOM AND CALL CABALLERO, DENIES DISCOMFORT OF ANY SORT, TELE MONITOR IN PLACE, MEAL OFFERED, BED ALARM ACTIVATED, WILL CONTINUE TO MONITOR.
[2021-02-14 09:19] LABS: URINE BILIRUBIN - DIPSTICK NEGATIVE (NEGATIVE); URINE BLOOD DIPSTICK NEGATIVE (NEGATIVE); URINE COLOR YELLOW; URINE GLUCOSE - DIPSTICK NEGATIVE (NEGATIVE); URINE KETONE NEGATIVE (NEGATIVE); URINE LEUK ESTERASE NEGATIVE (NEGATIVE); URINE NITRITE - DIPSTICK NEGATIVE (Negative); URINE PH 7.5 (4.5-8.0); URINE PROTEIN - DIPSTICK NEGATIVE (NEG-TRACE); URINE UROBILINOGEN - DIPSTICK 0.2 E.U./dL (0.2)
[2021-02-14 10:40] VITALS: BP 168/69
--- NOTE | 2021-02-14 12:00 | NUR ---
PT IS VERY ANXIOUS AND CRYING STATING HER SPOUSE JUST CALLED AND SCARED HER BUR WAS UNABLE TO SAY HE DID OR SAY THAT SCARED HER, BP IS ELEVATED AND HAS BEEN SINCE ARRIVAL, MEDICAL TEAM NOTIFIED AND WROTE ORDERS. NURSE EMPLOYED DISTRACTION TECHNIQUE BY TURNING ON TV AND ALLOWING PT TO FIND CHANNEL OF HER CHOICE, GAVE VERBAL ENCOURAGEMENT AND OFFERED ORAL LIQUIDS, WILL CONTINUE TO MONITOR.
[2021-02-14 14:03] VITALS: BP 178/75
--- NOTE | 2021-02-14 14:46 | NUR ---
SPOUSE OF PT CALLED STATING THE LONGER PT IS AWAY FROM HIM THE WORSE HER ANXIETY WILL GET, HE ADVISED TO SEND HER HOME USING [employer]. ADDRESS WRITTEN ON PAPER AND GIVEN TO PT TO DELIVER TO [employer] LINES REPAIRER JUST IN CASE SHE DOES NOT REMEMBER HER EXACT ADDRESS SHE ONLY KNOWS SHE LIVES IN [facility] BUT NOT THE EXACT ADDRESS. WILL CONTINUE TO MONITOR.
--- NOTE | 2021-02-14 15:10 | NUR ---
Discharge instructions given. Patient verbalizes understanding of same. Discharged in stable condition via Taxi to Home with *Other. All belongings sent with pt.
== END 2021-02-14 15:06 | disposition home or self-care (01) ==
LOC: ED 04:33 → ED-I 04:50 → ED 06:52 → MS2 06:53
PROVIDERS: Emergency Medicine; ADMIT Internal Medicine; ATTEND Internal Medicine
DX: R07.9 Chest pain, unspecified (principal); F03.90 Unspecified dementia, unspecified severity, without behavioral disturbance, psychotic disturbance, mood disturbance, and anxiety; I10 Essential (primary) hypertension; K21.9 Gastro-esophageal reflux disease without esophagitis; K74.60 Unspecified cirrhosis of liver; F41.9 Anxiety disorder, unspecified; Z87.11 Personal history of peptic ulcer disease; Z20.822 Contact with and (suspected) exposure to COVID-19
CPT/HCPCS: G0378

== ENCOUNTER 2022-02-04 20:41 | Inpatient (IN) | payer MEDICARE, BC ==
[~2022-02-04] VITALS: Ht 157.5 cm; Wt 50.9 kg
[2022-02-04] VITALS (9 sets, daily range): BP systolic 101–133; BP diastolic 51–86
[~2022-02-04 20:41] MED LIST changes: +AMLODIPINE BESYL5 MG PO; +ASPIRIN ADULT L81 M2 PO; +CARAFATE1 GM PO; +CLONAZEPAM0.5 M1 PO; +MEMANTINE HYDRO10 MG PO; +PROTONIX40 M2 PO
[2022-02-04 21:10] LABS: HEMATOCRIT 40.1 % (37.0-47.0); HEMOGLOBIN 13.1 g/dl (12.0-16.0); IMMATURE GRANULOCYTES 0.2 % (0.0-5.0); MEAN CELL VOLUME 91.3 fL CALC (80.0-100.0); MEAN CORPUSCULAR HGB 29.8 pG CALC (26.0-32.0); MEAN CORPUSCULAR HGB CONC 32.7 g/dL CAL (32.0-36.0); NEUT# 5.42 thou/uL (2.00-7.15); RED BLOOD COUNT 4.39 mill/uL (4.20-5.60); RED CELL DISTRI WIDTH 15.9 % (11.5-15.5)
[2022-02-04 21:50] LABS: ALBUMIN 3.8 g/dL (3.2-5.0); ALKALINE PHOSPHATASE 91 u/l (38-126); AMYLASE 243 u/l (30-110); ANION GAP 13 (6-22 (CALC)); BILIRUBIN, TOTAL 0.3 mg/dL (0.0-1.4); BUN 25 mg/dL (8-23); BUN/CREATININE RATIO 20 (12-20 (CALC)); CARBON DIOXIDE 30 mmol/l (22-30); CHLORIDE 97 mmol/l (95-108); CREATININE 1.2 mg/dL (0.5-1.0); GFR 43 ML/MIN (>=60 (CALC)); GFR FOR AFR.AMER. 52 ML/MIN (>=60 (CALC)); POTASSIUM 3.2 mmol/l (3.5-5.1); SODIUM 137 mmol/l (137-146); TOTAL PROTEIN 6.1 g/dL (6.3-8.2)
[2022-02-04 21:56] LABS: LIPASE 3191 u/l (23-300); SGOT/AST 285 u/l (9-36)
[2022-02-04 21:58] LABS: MYOGLOBIN 101 ng/mL (0 - 62)
[2022-02-04 21:59] LABS: URINE BILIRUBIN - DIPSTICK NEGATIVE (NEGATIVE); URINE BLOOD DIPSTICK NEGATIVE (NEGATIVE); URINE COLOR YELLOW; URINE GLUCOSE - DIPSTICK NEGATIVE (NEGATIVE); URINE KETONE NEGATIVE (NEGATIVE); URINE LEUK ESTERASE NEGATIVE (NEGATIVE); URINE PROTEIN - DIPSTICK NEGATIVE (NEG-TRACE); URINE UROBILINOGEN - DIPSTICK 0.2 E.U./dL (0.2)
[2022-02-04 22:00] LABS: URINE NITRITE - DIPSTICK NEGATIVE (Negative)
[2022-02-05] VITALS (7 sets, daily range): BP systolic 98–131; BP diastolic 49–62
[2022-02-05] MEDS ORDERED: FUROSEMIDE20 MG PO (07:17)
[2022-02-05 08:06] LABS: ALBUMIN 3.1 g/dL (3.2-5.0); ALKALINE PHOSPHATASE 92 u/l (38-126); AMYLASE 218 u/l (30-110); ANION GAP 10 (6-22 (CALC)); BILIRUBIN, TOTAL 0.4 mg/dL (0.0-1.4); BUN 19 mg/dL (8-23); BUN/CREATININE RATIO 21 (12-20 (CALC)); CARBON DIOXIDE 26 mmol/l (22-30); CHLORIDE 107 mmol/l (95-108); CREATININE 0.9 mg/dL (0.5-1.0); GFR 60 ML/MIN (>=60 (CALC)); GFR FOR AFR.AMER. > 60 ML/MIN (>=60 (CALC)); LIPASE 811 u/l (23-300); POTASSIUM 3.4 mmol/l (3.5-5.1); SGOT/AST 209 u/l (9-36); SODIUM 139 mmol/l (137-146); TOTAL PROTEIN 5.3 g/dL (6.3-8.2)
[2022-02-06 04:16] VITALS: BP 133/62
[2022-02-06 05:40] LABS: HEMATOCRIT 37.7 % (37.0-47.0); MEAN CELL VOLUME 93.3 fL CALC (80.0-100.0); MEAN CORPUSCULAR HGB 29.7 pG CALC (26.0-32.0); MEAN CORPUSCULAR HGB CONC 31.8 g/dL CAL (32.0-36.0); RED BLOOD COUNT 4.04 mill/uL (4.20-5.60); RED CELL DISTRI WIDTH 16.3 % (11.5-15.5)
[2022-02-06 06:02] LABS: AMYLASE 61 u/l (30-110); ANION GAP 12 (6-22 (CALC)); BUN 16 mg/dL (8-23); BUN/CREATININE RATIO 21 (12-20 (CALC)); CARBON DIOXIDE 25 mmol/l (22-30); CHLORIDE 108 mmol/l (95-108); CREATININE 0.8 mg/dL (0.5-1.0); GFR > 60 ML/MIN (>=60 (CALC)); GFR FOR AFR.AMER. > 60 ML/MIN (>=60 (CALC)); LIPASE 92 u/l (23-300); MAGNESIUM 1.9 mg/dL (1.6-2.3); POTASSIUM 3.6 mmol/l (3.5-5.1); SODIUM 142 mmol/l (137-146)
[2022-02-06 07:21] VITALS: BP 158/74
[2022-02-06 12:36] VITALS: BP 157/83
== END 2022-02-06 16:30 | disposition home health service (06) | DRG 384 ==
LOC: ED 20:41 → MS2 23:19
PROVIDERS: Family Medicine; ADMIT Internal Medicine; ATTEND Internal Medicine
PROC: 0DB78ZX Excision of Stomach, Pylorus, Via Natural or Artificial Opening Endoscopic, Diagnostic (ICD-10-PCS; principal; 2022-02-06)
DX: K25.9 Gastric ulcer, unspecified as acute or chronic, without hemorrhage or perforation (principal); K44.9 Diaphragmatic hernia without obstruction or gangrene; I10 Essential (primary) hypertension; F03.90 Unspecified dementia, unspecified severity, without behavioral disturbance, psychotic disturbance, mood disturbance, and anxiety; F41.9 Anxiety disorder, unspecified; K74.60 Unspecified cirrhosis of liver; Z87.11 Personal history of peptic ulcer disease; Z20.822 Contact with and (suspected) exposure to COVID-19
CPT/HCPCS: J1650; Q9967; S0164

== ENCOUNTER 2022-02-18 06:49 | Observation (INO) | payer MEDICARE, BC ==
[2022-02-18] VITALS (20 sets, daily range): BP systolic 144–203; BP diastolic 59–94
[~2022-02-18] VITALS: Ht 157.5 cm; Wt 48.0 kg
[~2022-02-18 06:49] MED LIST changes: +FUROSEMIDE20 MG PO
[2022-02-18 08:04] LABS: HEMATOCRIT 39.2 % (37.0-47.0); HEMOGLOBIN 12.7 g/dl (12.0-16.0); IMMATURE GRANULOCYTES 0.2 % (0.0-5.0); MEAN CELL VOLUME 91.6 fL CALC (80.0-100.0); MEAN CORPUSCULAR HGB 29.7 pG CALC (26.0-32.0); MEAN CORPUSCULAR HGB CONC 32.4 g/dL CAL (32.0-36.0); NEUT# 2.77 thou/uL (2.00-7.15); RED BLOOD COUNT 4.28 mill/uL (4.20-5.60); RED CELL DISTRI WIDTH 14.9 % (11.5-15.5)
[2022-02-18 08:26] LABS: ALBUMIN 3.6 g/dL (3.2-5.0); ALKALINE PHOSPHATASE 71 u/l (38-126); ANION GAP 11 (6-22 (CALC)); BUN 11 mg/dL (8-23); BUN/CREATININE RATIO 15 (12-20 (CALC)); CARBON DIOXIDE 30 mmol/l (22-30); CHLORIDE 104 mmol/l (95-108); CREATININE 0.7 mg/dL (0.5-1.0); GFR FOR AFR.AMER. > 60 ML/MIN (>=60 (CALC)); GFR OTHER RACES > 60 ML/MIN (>=60 (CALC)); POTASSIUM 3.3 mmol/l (3.5-5.1); SODIUM 141 mmol/l (137-146); TOTAL PROTEIN 6.1 g/dL (6.3-8.2)
[2022-02-18 08:28] LABS: BILIRUBIN, TOTAL 0.6 mg/dL (0.0-1.4); SGOT/AST 41 u/l (9-36)
[2022-02-19 00:42] VITALS: BP 126/66
[2022-02-19 05:33] VITALS: BP 145/63
[2022-02-19 06:30] LABS: HEMATOCRIT 42.1 % (37.0-47.0); HEMOGLOBIN 13.6 g/dl (12.0-16.0); MEAN CELL VOLUME 91.5 fL CALC (80.0-100.0); MEAN CORPUSCULAR HGB 29.6 pG CALC (26.0-32.0); MEAN CORPUSCULAR HGB CONC 32.3 g/dL CAL (32.0-36.0); NEUT# 2.44 thou/uL (2.00-7.15); RED BLOOD COUNT 4.6 mill/uL (4.20-5.60); RED CELL DISTRI WIDTH 15.1 % (11.5-15.5)
[2022-02-19 06:43] LABS: ANION GAP 10 (6-22 (CALC)); BUN 13 mg/dL (8-23); BUN/CREATININE RATIO 17 (12-20 (CALC)); CARBON DIOXIDE 28 mmol/l (22-30); CHLORIDE 103 mmol/l (95-108); CREATININE 0.7 mg/dL (0.5-1.0); GFR FOR AFR.AMER. > 60 ML/MIN (>=60 (CALC)); GFR OTHER RACES > 60 ML/MIN (>=60 (CALC)); POTASSIUM 3.1 mmol/l (3.5-5.1); SODIUM 137 mmol/l (137-146)
[2022-02-19 08:10] VITALS: BP 161/74
[2022-02-19 08:20] VITALS: BP 148/68
[2022-02-19 12:39] VITALS: BP 148/68
== END 2022-02-19 13:15 | disposition home or self-care (01) ==
LOC: ED 06:49 → ED-I 08:20 → ED 09:03 → MS2 09:04
PROVIDERS: Family Medicine; ADMIT Internal Medicine; ATTEND Internal Medicine
DX: R07.2 Precordial pain (principal); I10 Essential (primary) hypertension; F03.90 Unspecified dementia, unspecified severity, without behavioral disturbance, psychotic disturbance, mood disturbance, and anxiety; K74.60 Unspecified cirrhosis of liver; Z87.11 Personal history of peptic ulcer disease; Z20.822 Contact with and (suspected) exposure to COVID-19
CPT/HCPCS: G0378; J1650

== ENCOUNTER 2022-07-07 19:39 | Inpatient (IN) | payer MEDICARE, BC ==
[~2022-07-07] VITALS: Ht 157.5 cm; Wt 70.0 kg
[2022-07-07] VITALS (9 sets, daily range): BP systolic 88–111; BP diastolic 45–64
[2022-07-07 20:10] LABS: HEMATOCRIT 40.9 % (37.0-47.0); HEMOGLOBIN 13.3 g/dl (12.0-16.0); IMMATURE GRANULOCYTES 0.3 % (0.0-5.0); MEAN CELL VOLUME 94.7 fL CALC (80.0-100.0); MEAN CORPUSCULAR HGB 30.8 pG CALC (26.0-32.0); MEAN CORPUSCULAR HGB CONC 32.5 g/dL CAL (32.0-36.0); NEUT# 8.91 thou/uL (2.00-7.15); RED BLOOD COUNT 4.32 mill/uL (4.20-5.60); RED CELL DISTRI WIDTH 12.7 % (11.5-15.5)
[2022-07-07 20:18] LABS: ALBUMIN 3.5 g/dL (3.2-5.0); CREATININE 1.1 mg/dL (0.5-1.0); POTASSIUM 3.2 mmol/l (3.5-5.1); TOTAL PROTEIN 5.8 g/dL (6.3-8.2)
[2022-07-07 20:22] LABS: BILIRUBIN, TOTAL 0.8 mg/dL (0.0-1.4)
[2022-07-07 23:02] LABS: URINE BILIRUBIN - DIPSTICK NEGATIVE (NEGATIVE); URINE BLOOD DIPSTICK NEGATIVE (NEGATIVE); URINE COLOR YELLOW; URINE GLUCOSE - DIPSTICK NEGATIVE (NEGATIVE); URINE KETONE TRACE mg/dL (NEGATIVE); URINE LEUK ESTERASE NEGATIVE (NEGATIVE); URINE NITRITE - DIPSTICK NEGATIVE (Negative); URINE PH 5.5 (4.5-8.0); URINE PROTEIN - DIPSTICK NEGATIVE (NEG-TRACE); URINE UROBILINOGEN - DIPSTICK 0.2 E.U./dL (0.2)
[2022-07-08] VITALS (7 sets, daily range): BP systolic 93–140; BP diastolic 49–75
[2022-07-08 04:58] LABS: HEMATOCRIT 38.9 % (37.0-47.0); HEMOGLOBIN 12.7 g/dl (12.0-16.0); MEAN CELL VOLUME 95.1 fL CALC (80.0-100.0); MEAN CORPUSCULAR HGB 31.1 pG CALC (26.0-32.0); MEAN CORPUSCULAR HGB CONC 32.6 g/dL CAL (32.0-36.0); RED BLOOD COUNT 4.09 mill/uL (4.20-5.60)
[2022-07-08 05:18] LABS: CREATININE 1.2 mg/dL (0.5-1.0); MAGNESIUM 1.7 mg/dL (1.6-2.3); POTASSIUM 3.5 mmol/l (3.5-5.1)
[2022-07-09 04:00] VITALS: BP 144/62
[2022-07-09 05:09] VITALS: BP 144/62
[2022-07-09 05:14] LABS: HEMATOCRIT 36.2 % (37.0-47.0); HEMOGLOBIN 11.9 g/dl (12.0-16.0); MEAN CORPUSCULAR HGB 30.9 pG CALC (26.0-32.0); MEAN CORPUSCULAR HGB CONC 32.9 g/dL CAL (32.0-36.0); RED BLOOD COUNT 3.85 mill/uL (4.20-5.60); RED CELL DISTRI WIDTH 13.3 % (11.5-15.5)
[2022-07-09 05:35] LABS: ANION GAP 13 (6-22 (CALC)); BUN 27 mg/dL (8-23); BUN/CREATININE RATIO 34 (12-20 (CALC)); CARBON DIOXIDE 26 mmol/l (22-30); CHLORIDE 105 mmol/l (95-108); CREATININE 0.8 mg/dL (0.5-1.0); GFR FOR AFR.AMER. > 60 ML/MIN (>=60 (CALC)); GFR OTHER RACES > 60 ML/MIN (>=60 (CALC)); MAGNESIUM 1.8 mg/dL (1.6-2.3); POTASSIUM 3.6 mmol/l (3.5-5.1); SODIUM 140 mmol/l (137-146)
[2022-07-09 07:40] VITALS: BP 153/63
[2022-07-09] MEDS ORDERED: PREDNISONE20 MG PO (09:30)
[2022-07-09] MEDS ORDERED: OMNICEF300 MG PO (09:31)
[2022-07-09] MEDS ORDERED: ZITHROMAX250 MG PO (09:32)
== END 2022-07-09 12:10 | disposition home health service (06) | DRG 193 ==
LOC: ED 19:39 → ED-I 20:55 → ED 21:10 → MS2 21:11
PROVIDERS: Family Medicine; ADMIT Internal Medicine; ATTEND Internal Medicine
DX: J18.9 Pneumonia, unspecified organism (principal); J96.01 Acute respiratory failure with hypoxia; F03.911 Unspecified dementia, unspecified severity, with agitation; I10 Essential (primary) hypertension; K74.60 Unspecified cirrhosis of liver; F41.9 Anxiety disorder, unspecified; M41.9 Scoliosis, unspecified; Z87.11 Personal history of peptic ulcer disease; Z20.822 Contact with and (suspected) exposure to COVID-19
CPT/HCPCS: S0164

== ENCOUNTER 2022-08-07 16:55 | Observation (INO) | payer MEDICARE, BC ==
[~2022-08-07] VITALS: Ht 157.5 cm; Wt 55.0 kg
[2022-08-07] VITALS (10 sets, daily range): BP systolic 121–196; BP diastolic 40–98
[~2022-08-07 16:55] MED LIST changes: +OMNICEF300 MG PO; +PREDNISONE20 MG PO; +ZITHROMAX250 MG PO
--- NOTE | 2022-08-07 16:55 | NUR ---
PATIENT TO ED VIA EMS. ALERT AND ORIENTED X2.
[2022-08-07 17:22] LABS: HEMATOCRIT 40.3 % (37.0-47.0); HEMOGLOBIN 13.7 g/dl (12.0-16.0); MEAN CELL VOLUME 91.2 fL CALC (80.0-100.0); NEUT# 2.16 thou/uL (2.00-7.15); RED BLOOD COUNT 4.42 mill/uL (4.20-5.60); RED CELL DISTRI WIDTH 12.5 % (11.5-15.5)
[2022-08-07 17:40] LABS: ALBUMIN 3.9 g/dL (3.2-5.0); ALKALINE PHOSPHATASE 80 u/l (38-126); ANION GAP 9 (6-22 (CALC)); BILIRUBIN, TOTAL 0.5 mg/dL (0.0-1.4); BUN 13 mg/dL (8-23); BUN/CREATININE RATIO 17 (12-20 (CALC)); CARBON DIOXIDE 30 mmol/l (22-30); CHLORIDE 102 mmol/l (95-108); CREATININE 0.8 mg/dL (0.5-1.0); GFR FOR AFR.AMER. > 60 ML/MIN (>=60 (CALC)); GFR OTHER RACES > 60 ML/MIN (>=60 (CALC)); LIPASE 143 u/l (23-300); POTASSIUM 3.1 mmol/l (3.5-5.1); SGOT/AST 25 u/l (9-36); SODIUM 138 mmol/l (137-146); TOTAL PROTEIN 6.3 g/dL (6.3-8.2)
--- NOTE | 2022-08-07 17:45 | NUR ---
MADE AWARE OF BLOOD PRESSURE. NO NEW ORDERS AT THIS TIME.
--- NOTE | 2022-08-07 17:53 | NUR ---
PATIENT RESTING ON STRETCHER NO SIGNS OF DISTRESS NOTED. WAITING ON RESULTS.
--- NOTE | 2022-08-07 18:15 | NUR ---
PATIENT FOUND WITH GOWN OFF, CARDIAC LEADS OFF, IV WITH CATH INTACT LAYING IN BED. NO ACTIVE BLEEDING. PATIENT REQUESTING TO LEAVE AND PUT CLOTHS ON. NO FAMILY AT BEDSIDE. ISMAEL VILLAFUERTE AT BEDSIDE TO SIT WITH PATIENT.
--- NOTE | 2022-08-07 19:00 | NUR ---
PATIENT UNABLE TO VERIFY HOME MEDICATIONS
--- NOTE | 2022-08-07 19:04 | NUR ---
REPORT GIVEN TO JACI GRANT. CARE RELINQUISHED.
[2022-08-07] MEDS ORDERED: KLONOPIN0.5 MG PO (20:43)
[2022-08-07] MEDS ORDERED: NORVASC5 M1 PO (20:43)
[2022-08-07] MEDS ORDERED: COREG12.5 MG PO (20:44)
[2022-08-07] MEDS ORDERED: PROTONIX40 M2 PO (20:44)
[2022-08-07] MEDS ORDERED: ARICEPT PO (20:45)
[2022-08-07] MEDS ORDERED: BUSPAR15 M1 PO (20:45)
[2022-08-07] MEDS ORDERED: LEXAPRO10 MG PO (20:45)
[2022-08-07] MEDS ORDERED: MEMANTINE HYDRO10 MG PO (20:45)
--- NOTE | 2022-08-07 20:47 | NUR ---
PATIENT CHANGED INTO CLEAN BRIEF AND CHANGED INTO GOWN. REPORT GIVEN TO POOJA BEATTY AND PATIENT TRANSPORTED TO MEDR UNIT. PT IN NAD.
--- NOTE | 2022-08-07 22:00 | NUR ---
PATIENT ADMITTED FROM ER VIA STRETCHER WITH ER STAFF IN ATTENDANCE. PATIENT IS ABLE TO TRANSFER TO BED. PATIENT IS AWAKE ALERT BUT VERY CONFUSED WITHADVANCED DEMENTIA. ORIENTED TO SELF ONLY. SITTER AT BEDSIDE FOR PATIENT SAFETY. PATIENT DENIES ANY PAIN AT THIS TIME. PATIENT WITH SALINE LOCK TO TO RIGHT WRIST. TELE MONOTOR OM PLACE. PATIENT PROVIDED WITH HEALTHY CHOICE TURKEY DINNER-APPETITE WAS GOOD. 2ND TROP WAS DRAWN AND WAS NEG. ATTEMPT TO ORIENT PATIENT TO ROOM AND SURROUNDINGS WITH LITTLE SUCCESS. CALL LIGHT IN REACH. PATIENT DID SPEACK WITH S/O ON THE PHONE AND DID APPEAR CALMER AFTER. HS MEDS WERE GIVEN ORDERED. KLONOPIN WAS GIVEN FOR RESTLESSNESS. BP WAS ELEVATED ON ADMISSION TO FLOOR AND BP MEDS WERE GIVEN. NO DIFFICULTY WITH SWALLOWING. SITTED WILL REMAIN AT BEDSIDE FOR PATIENT SAFETY. SPOKE WITH PATIENT S/O FOR ADMISSION INFO. WILL CONT TO MONITOR.
--- NOTE | 2022-08-08 | NUR ---
PATIENT RESTING IN BED POSITIONED ON SIDE WITH SITTER AT BEDSIDE FOR SAFETY, TELE MONITOR IN PLACE. CALL LIGHT IN REACH. WILL CONT TO MONITOR.
[2022-08-08 00:17] VITALS: BP 155/77
--- NOTE | 2022-08-08 02:15 | NUR ---
ASSISTED OOB TO BR TO VOID-URINE SPEC OBTAINED AND SENT TO LAB. ASSISTED BACKK TO BED. SITTER REMAINS AT BEDSIDE FOR PATIENT SAFETY. CALL LIGHT IN REACH. WILL CONT TO MONITOR.
[2022-08-08 02:35] LABS: URINE BILIRUBIN - DIPSTICK NEGATIVE (NEGATIVE); URINE BLOOD DIPSTICK NEGATIVE (NEGATIVE); URINE COLOR YELLOW; URINE GLUCOSE - DIPSTICK NEGATIVE (NEGATIVE); URINE KETONE NEGATIVE (NEGATIVE); URINE LEUK ESTERASE NEGATIVE (NEGATIVE); URINE PROTEIN - DIPSTICK NEGATIVE (NEG-TRACE); URINE UROBILINOGEN - DIPSTICK 0.2 E.U./dL (0.2)
[2022-08-08 02:38] LABS: URINE NITRITE - DIPSTICK NEGATIVE (Negative)
[2022-08-08 04:17] VITALS: BP 137/57
--- NOTE | 2022-08-08 04:24 | NUR ---
PATIENT IS SITTING UP IN RECLINER AT THIS TIME. SITTER REMAINS AT BEDSIDE FOR SAFETY. TELE MONITOR IN PLACE. LASTTROP WAS NEG. CALL LIGHTIN REACH. WILL CONT TO MONITOR.
[2022-08-08 05:49] VITALS: BP 141/79
--- NOTE | 2022-08-08 07:00 | NUR ---
REPORT FROM POOJA BEATTY. ASSUMED PT CARE.
--- NOTE | 2022-08-08 07:40 | NUR ---
PT SITTING UP IN CHAIR AT BEDSIDE, SITTER PRESENT IN ROOM. NO APPARENT DISTRESS NOTED. PT DENIES ANY PAIN OR DISCOMFORT. CALL LIGHT WITHIN REACH. WILL CONTINUE TO MONITOR.
--- NOTE | 2022-08-08 08:25 | NUR ---
PT CONSENTED TO RECEIVE PNEUMOCOCCAL VACCINATION, HOWEVER PT RECEIVED PCV 13 (04/2015) AND PPSV23 (05/2016). NO ADDITIONAL PNEUMOCOCCAL VACCINATION RECOMMENDED.
--- NOTE | 2022-08-08 09:45 | NUR ---
PLACED CALL TO AMA FOR CURRENT MEDICATIONS LIST TO UPDATE MED REC.
[2022-08-08] MEDS ORDERED: ASPIRIN 81 LOW81 MG PO (10:24)
[2022-08-08] MEDS ORDERED: PRESERVISION/LUTEIN PO (10:25)
[2022-08-08] MEDS ORDERED: D31000 UNIT PO (10:25)
[2022-08-08] MEDS ORDERED: PROTONIX40 M2 PO (10:26)
[2022-08-08] MEDS ORDERED: FUROSEMIDE20 MG PO (10:29)
[2022-08-08] MEDS ORDERED: TRAZODONE50 MG PO (10:30)
[2022-08-08] MEDS ORDERED: SIMVASTATIN40 MG PO (10:31)
[2022-08-08 10:36] VITALS: BP 147/72
--- NOTE | 2022-08-08 11:51 | NUR ---
IV site discontinued pt removed herself, cath intact. No edema , no redness, voices no discomfort.
--- NOTE | 2022-08-08 12:05 | NUR ---
Discharge instructions given. Patient verbalizes understanding of same. Discharged in stable condition via Wheelchair to Home with friend. All belongings sent with pt.
== END 2022-08-08 12:05 | disposition home health service (06) ==
LOC: ED 16:55 → ED-I 18:30 → ED 18:47 → MS2 18:48
PROVIDERS: Family Medicine; ADMIT Internal Medicine; ATTEND Internal Medicine
DX: R07.9 Chest pain, unspecified (principal); I10 Essential (primary) hypertension; F03.90 Unspecified dementia, unspecified severity, without behavioral disturbance, psychotic disturbance, mood disturbance, and anxiety; Z87.11 Personal history of peptic ulcer disease; Z23 Encounter for immunization; K74.60 Unspecified cirrhosis of liver
CPT/HCPCS: J1650

== ENCOUNTER 2022-09-23 19:24 | Emergency (ER) | payer MEDICARE, BC ==
[2022-09-23] VITALS (13 sets, daily range): BP systolic 113–228; BP diastolic 65–114
[~2022-09-23] VITALS: Ht 154.9 cm; Wt 49.0 kg
[~2022-09-23 19:24] MED LIST changes: +ARICEPT PO; +BUSPAR15 M1 PO; +D31000 UNIT PO; +PRESERVISION/LUTEIN PO
[2022-09-23 21:01] LABS: BASO% 0.4 % (0-3); EOS% 0.9 % (0-8); HEMATOCRIT 43.8 % (37.0-47.0); LYMPH% 27.3 % (15-41); MEAN CELL VOLUME 91.3 fL CALC (80.0-100.0); MEAN CORPUSCULAR HGB 31.3 pG CALC (26.0-32.0); MEAN CORPUSCULAR HGB CONC 34.2 g/dL CAL (32.0-36.0); MONO% 8.8 % (2-13); NEUT# 3.4 thou/uL (2.00-7.15); NEUT% 62.6 % (42-76); RED BLOOD COUNT 4.8 mill/uL (4.20-5.60); RED CELL DISTRI WIDTH 12.6 % (11.5-15.5)
[2022-09-23 21:14] LABS: ALBUMIN 4.3 g/dL (3.2-5.0); ALKALINE PHOSPHATASE 66 u/l (38-126); ANION GAP 9 (6-22 (CALC)); BILIRUBIN, TOTAL 0.4 mg/dL (0.0-1.4); BUN 17 mg/dL (8-23); BUN/CREATININE RATIO 21 (12-20 (CALC)); CARBON DIOXIDE 32 mmol/l (22-30); CHLORIDE 103 mmol/l (95-108); CREATININE 0.8 mg/dL (0.5-1.0); GFR FOR AFR.AMER. > 60 ML/MIN (>=60 (CALC)); GFR OTHER RACES > 60 ML/MIN (>=60 (CALC)); POTASSIUM 3.1 mmol/l (3.5-5.1); SGOT/AST 26 u/l (9-36); SODIUM 140 mmol/l (137-146)
[2022-09-23 21:15] LABS: D-DIMER 0.36 mg/L (0.19-0.60)
[2022-09-23 21:18] LABS: ACT PARTIAL THROMBO TIME 22.7 SECONDS (20.0-32.5)
[2022-09-23] MEDS ORDERED: POT CHLORIDE10 ME5 PO (22:15)
[2022-09-23] MEDS ORDERED: PEPCID20 MG PO (23:21)
== END 2022-09-23 23:30 | disposition home or self-care (01) ==
LOC: ED 19:24
PROVIDERS: Family Medicine
DX: K20.90 Esophagitis, unspecified without bleeding (principal); E87.6 Hypokalemia; M41.9 Scoliosis, unspecified; I10 Essential (primary) hypertension; F03.90 Unspecified dementia, unspecified severity, without behavioral disturbance, psychotic disturbance, mood disturbance, and anxiety; Z87.11 Personal history of peptic ulcer disease; R07.9 Chest pain, unspecified